=== PATIENT | female | born 1955 | race Caucasian/White ===

== ENCOUNTER → 2018-06-18 | Outpatient (CLI) | payer BC, OTHER ==
[~2018-06-18] VITALS: Ht 149.9 cm; Wt 80.7 kg
[~2018-06-18] MED LIST: AMLODIPINE BESY10 MG PO; ASPIRIN325 PO; CARDIZEM30 MG PO; CARTIA XT180 M1 PO; CYMBALTA60 MG PO; ESTRADIOL 1 MG T1 M1; LEVOTHYROXINE0.05 MG PO; PROTONIX40 M1 PO; SYNTHROID100 MC1 PO; XARELTO20 MG PO
--- NOTE | 2018-06-18 12:14 | EKG ---
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 : 1955 Requested By: Adelaida Jenkins Order Number: [id number] MD: Thomas Han Measurements Intervals [place] Rate: 148 P: CO: QRS: 8 QRSD: 84 T: 92 QT: 317 QTc: 498 Interpretive Statements Atrial fibrillation Nonspecific ST-T wave changes Baseline wander in lead(s) II,aVR,aVF Compared to ECG 07/24/2016 11:56:48 Sinus rhythm no longer present Electronically Signed On 06-18-2018 12:14:34 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
--- NOTE | 2018-06-21 08:16 | P ---
[facility] [place] [address] PROCEDURE REPORT Name: FAISAL TOLBERT Room #: REG [facility].#: [id number] Admission: 06/18/18 ������������������ Attend Phys: Gabriel Barriga Discharge: ������������������ Date of : 59 Report #: [id number] THIS REPORT FOR: //name// CC: Gabriel Gee MD DATE OF SERVICE: 06/18/2018 PROCEDURE PERFORMED: Colonoscopy with biopsies. HISTORY OF PRESENT ILLNESS: The patient is a 62-year-old female with a history of colon polyps, here for a 6-year followup. Denies any symptoms other than intermittent diarrhea, possibly due to irritable bowel syndrome. No family history of colon cancer. She is on Xarelto and this has been held for the last several days. Plan is for colonoscopy. DESCRIPTION OF PROCEDURE: The risks and benefits of the procedure were explained to the patient and those risks including but not limited to bleeding, perforation and the risk of sedation. She understood these risks and gave informed consent. Sedation was given using propofol per anesthesia. Next, a digital rectal exam was initially performed, which was normal. Next, using a standard Olympus colonoscope, the scope was placed in the patient's anus and advanced under direct vision to the cecum. The overall prep was excellent. In the cecum, there was a 3 mm sessile polyp and this was removed with cold forceps, otherwise normal. The ileocecal valve was normal. In the ascending colon, a possible 2 mm sessile polyp was noted. This was removed with cold forceps, otherwise normal. In the transverse colon, a total of 3 polyps were noted, ranging from 3-4 mm in size, all removed with cold forceps. The descending and sigmoid colon were normal. The rectal mucosa was normal. Small nonbleeding internal hemorrhoids were noted on retroflexion. The scope was then withdrawn and the procedure terminated. The patient tolerated the procedure well. IMPRESSION: 1. Small colonic polyps as described above. 2. Small internal hemorrhoids. 3. Otherwise, normal colonoscopy. RECOMMENDATIONS: 1. Await biopsy results. 2. Repeat colonoscopy in [address] [address] PROCEDURE REPORT Name: FAISAL TOLBERT Room #: REG ALEXANDREA Daija#: [id number] Admission: 06/18/18 ������������������ Attend Phys: Gabriel Barriga Discharge: ������������������ Date of : 59 Report #: [id number] Thank you for allowing me to participate in her care. ��������������������������������������������� <ELECTRONICALLY SIGNED> ���������������������������������������� By: Gabriel Amaral MD ��������������������������������������������� 06/21/18 0816 0848 [id number] Gabriel Amaral MD /nt
== END | disposition home or self-care (01) ==
LOC: GI 06:33
DX: K63.5 Polyp of colon (principal); R19.7 Diarrhea, unspecified; Z86.010 Personal history of colon polyps; K64.8 Other hemorrhoids; I48.0 Paroxysmal atrial fibrillation; Z68.35 Body mass index [BMI] 35.0-35.9, adult; F32.9 Major depressive disorder, single episode, unspecified; G47.30 Sleep apnea, unspecified; I10 Essential (primary) hypertension; Z98.890 Other specified postprocedural states; Z90.710 Acquired absence of both cervix and uterus; K21.9 Gastro-esophageal reflux disease without esophagitis; E03.9 Hypothyroidism, unspecified
CPT/HCPCS: 62110; 62900